=== PATIENT | male | born 1985 | race Caucasian/White ===

== ENCOUNTER 2016-11-13 04:41 | Emergency (ER) | payer OTHER ==
[~2016-11-13] VITALS: Ht 175.3 cm; Wt 79.4 kg
--- NOTE | 2016-11-13 04:43 | ED AMS/SEIZURE/WEAK/DIZZY ---
History of Present Illness General Chief Complaint: ETOH/Drug Related Complaint Stated Complaint: WITHDRAWAL Source: patient, police Exam Limitations: no limitations Vital Signs & Intake/Output Vital Signs & Intake/Output Vital Signs Date Time Temp Pulse Resp B/P B/P Pulse O2 O2 Flow FiO2 Mean Ox Delivery Rate 11/13 0443 97.7 80 18 120/88 98 Room Air Triage Nurses Notes Reviewed? yes Onset: Gradual Duration: day(s): Timing: single episode today Injury Environment: home Severity: moderate Modifying Factors: Improves With: rest. Associated Symptoms: "the shakes" HPI: 31-year-old gentleman history of alcoholism and methadone dependence presents in the company of the police feeling, "withdrawal symptoms." He states that he last drank and used methadone yesterday. He drinks a pint of vodka a day. He has never had seizures. He is on 70 mg of methadone he states. He states that he feels body aches mild nausea and some shakes. He would like to go back to custodial and complete his hearing so that he could be released later today. He denies suicidality homicidality or hallucinations or seizures. He is otherwise well and has no other concerns. Past History Travel History Traveled to [place] past 21 day No Medical History Any Pertinent Medical History? see below for history Psychiatric: alcohol dependence, substance abuse Surgical History Surgical History: none Family History Hx Contributory? No Review of Systems Review of Systems Constitutional: Reports: no symptoms. EENTM: Reports: no symptoms. Respiratory: Reports: no symptoms. Cardiovascular: Reports: no symptoms. GI: Reports: no symptoms. Genitourinary: Reports: no symptoms. Musculoskeletal: Reports: no symptoms. Skin: Reports: no symptoms. Neurological/Psychological: Reports: no symptoms. Hematologic/Endocrine: Reports: no symptoms. Immunologic/Allergic: Reports: no symptoms. All Other Systems: Reviewed and Negative Physical Exam Physical Exam General Appearance: well developed/nourished, mild distress Head: atraumatic, normal appearance Eyes: Bilateral: normal appearance. Ears, Nose, Throat: normal pharynx, normal ENT inspection Neck: normal inspection, supple, full range of motion Respiratory: normal breath sounds, chest non-tender, no respiratory distress Cardiovascular: regular rate/rhythm Gastrointestinal: normal bowel sounds, soft, non-tender Back: normal inspection Extremities: normal range of motion Neurologic/Psych: no motor/sensory deficits, awake, alert, oriented x 3 Skin: intact, normal color, warm/dry Core Measures ACS in differential dx? No CVA/TIA Diagnosis: No Severe Sepsis Present: No Septic Shock Present: No Progress Differential Diagnosis: opioid withdrawal, alcohol withdrawal versus anxiety versus other Plan of Care: Current Medications Sig/[place] Start time Last Medication Dose Stop Time Status Admin Chlordiazepoxide HCl 25 MG ONCE ONE 11/13 499 AC (Librium) 11/13 500 Clonidine 0.1 MG ONCE ONE 11/13 499 AC (Catapres) 11/13 500 Ondansetron HCl 4 MG ONCE ONE 11/13 499 AC (Zofran) 11/13 500 Initial ED EKG: none Departure Departure Disposition: HOME OR SELF CARE Condition: Stable Clinical Impression Primary Impression: Opioid withdrawal Secondary Impressions: Alcoholism Departure Forms: Customer Survey General Discharge Information Comments Patient was stable vitals in ED. Patient given Librium, clonidine, Zofran for symptomatic support. He is safe for discharge back in the company of the police. I encouraged him to return to the emergency department should his symptoms recur. I also supplied him a list of detox resources that he can pursue upon his release.
[2016-11-13 05:01] VITALS: BP 120/88
== END 2016-11-13 05:01 ==
LOC: ERH 04:41
DX: F11.20 Opioid dependence, uncomplicated (principal); F10.20 Alcohol dependence, uncomplicated
CPT/HCPCS: J3101